=== PATIENT | female | born 1990 | race Caucasian/White ===

== ENCOUNTER 2018-03-23 18:30 | Emergency (ER) | payer BC, MEDICAID ==
[~2018-03-23] VITALS: Ht 152.4 cm; Wt 56.0 kg
[~2018-03-23 18:30] MED LIST: AMPH10TA19; Birth Control; CLON1TAB17; DIVA500T5; PROM25TA14 PO
[2018-03-23] MEDS ORDERED: ibuprofen tablet 400 MG TABLET PO ONE (21:20)
[2018-03-23 21:25] VITALS: BP 110/59
== END 2018-03-23 21:31 | disposition home or self-care (01) ==
LOC: ER 18:30
DX: S09.90XA Unspecified injury of head, initial encounter (principal); S19.9XXA Unspecified injury of neck, initial encounter; F12.90 Cannabis use, unspecified, uncomplicated; Z79.899 Other long term (current) drug therapy; V89.2XXA Person injured in unspecified motor-vehicle accident, traffic, initial encounter; Y93.89 Activity, other specified; Y92.488 Other paved roadways as the place of occurrence of the external cause; Y99.8 Other external cause status
CPT/HCPCS: 36415; 70450; 70486; 72125; 86885; 86900; 86901; 99285

== ENCOUNTER 2022-09-03 11:31 | Emergency (ER) | payer MEDICAID, OTHER ==
[~2022-09-03] VITALS: Ht 152.4 cm; Wt 47.0 kg
[~2022-09-03 11:31] MED LIST changes: -CLON1TAB17; +[UNRECOGNIZED DRUG - CODE]
[2022-09-03 11:58] LABS: BASOPHILS # (AUTO) 0.1 X10'3 (0-0.2); BASOPHILS % (AUTO) 0.6 % (0-1); EOSINOPHILS # (AUTO) 0.1 X10'3 (0-0.9); EOSINOPHILS % (AUTO) 1.5 % (0-6); HEMATOCRIT 41.4 % (35.0-45.0); HEMOGLOBIN 13.8 g/dl (12.0-16.0); LYMPHOCYTES # (AUTO) 1.3 X10'3 (1.1-4.8); LYMPHOCYTES % (AUTO) 14.9 % (21-51); MEAN CORPUSCULAR HEMOGLOBIN 31.9 PG (27.0-31.0); MEAN CORPUSCULAR HGB CONC 33.3 g/dL (33.0-36.5); MEAN CORPUSCULAR VOLUME 95.8 FL (78-98); MEAN PLATELET VOLUME 8.5 FL (7.4-10.4); MONOCYTES # (AUTO) 0.7 X10'3 (0-0.9); MONOCYTES % (AUTO) 7.5 % (2-12); NEUTROPHILS # (AUTO) 6.7 X10'3 (1.8-7.7); NEUTROPHILS % (AUTO) 75.5 % (42-75); PLATELET COUNT 298 X10'3 (140-440); RED BLOOD COUNT 4.32 X10'6 (4.20-5.60); RED CELL DISTRIBUTION WIDTH 12.3 % (11.5-14.5); WHITE BLOOD COUNT 8.9 X10'3 (4.5-11.0)
[2022-09-03 12:14] LABS: ALANINE AMINOTRANSFERASE 19 U/L (12-78); ALBUMIN 4.8 G/DL (3.4-5.0); ALBUMIN/GLOBULIN RATIO 1.7 (1.1-1.5); ALKALINE PHOSPHATASE 66 IU/L (46-116); ANION GAP 10 (8-16); ASPARTATE AMINO TRANSFERASE 17 U/L (10-37); BILIRUBIN,TOTAL 0.9 MG/DL (0.1-1.0); BLOOD UREA NITROGEN 12 MG/DL (7-18); BUN/CREATININE RATIO 14.6 (6.6-38.0); CALCIUM 9.6 MG/DL (8.5-10.1); CHLORIDE 105 MMOL/L (99-107); CREATININE 0.82 MG/DL (0.40-0.90); GLUCOSE 98 MG/DL (70-104); POTASSIUM 3.7 MMOL/L (3.5-5.1); SODIUM 140 MMOL/L (135-145); TOTAL CARBON DIOXIDE 24.6 MMOL/L (24-32); TOTAL PROTEIN 7.7 G/DL (6.4-8.2); eGFR 80 ML/MIN
[2022-09-03 12:25] LABS: MAGNESIUM 2.1 MG/DL (1.5-2.4)
[2022-09-03] MEDS ORDERED: ketorolac trometh. 30mg/ml inj. IV ONE (13:55)
[2022-09-03] MEDS ORDERED: normal saline 1000ML IV soln IVB ONE (13:55)
[2022-09-03 14:41] LABS: HCG SERUM QL NEGATIVE
--- NOTE | 2022-09-03 15:02 | NUR ---
PT TO CT.
--- NOTE | 2022-09-03 15:05 | NUR ---
PT RETURN FROM CT.
[2022-09-03 15:06] LABS: LIPASE 68 U/L (73-393)
[2022-09-03 16:09] VITALS: BP 108/62
== END 2022-09-03 16:11 | disposition home or self-care (01) ==
LOC: ER 11:31
DX: A08.4 Viral intestinal infection, unspecified (principal); J45.909 Unspecified asthma, uncomplicated; Z87.448 Personal history of other diseases of urinary system
CPT/HCPCS: 36415; 74176; 80053; 82948; 83690; 83735; 83880; 84484; 84703; 85025; 93005; 96361; 96374; 99285; J1885; J7030